=== PATIENT | male | born 1950 | race Caucasian/White ===

== ENCOUNTER 2017-11-25 13:45 | Emergency (ER) | payer MEDICARE ==
[~2017-11-25] VITALS: Ht 167.6 cm; Wt 75.0 kg
[~2017-11-25 13:45] MED LIST: ABAC1TAB2 PO; ASPI-1265 PO; ATOR10TA87 PO; CEPH-572 PO; DARU1TAB PO; DEXL30CA3 PO; DOXY100C43 PO; ELET20TA; FAMC500T3 PO; GABA800T PO; HYDR-4070 PO; HYDR25TA4 PO; LACT1CAP65 PO; LORA1TAB PO; NORCO10T PO; ONDA8TAB9 PO; PER5325T PO; TEST5GEL6 TD; [UNRECOGNIZED DRUG - OTHER] PO; [UNRECOGNIZED DRUG - OTHER] PO
[2017-11-25 13:52] VITALS: BP 171/97
[2017-11-25] MEDS ORDERED: LIDOcaine 1.5% w/epinephrine 1:200,000 5ml ampul IJ ONE (15:00)
[2017-11-25] MEDS ORDERED: AMOX-580 PO (15:58)
[2017-11-25] MEDS ORDERED: CEPH500C5 PO (16:02)
== END 2017-11-25 16:36 | disposition home or self-care (01) ==
LOC: ER 13:46
DX: L02.01 Cutaneous abscess of face (principal); I10 Essential (primary) hypertension; K57.90 Diverticulosis of intestine, part unspecified, without perforation or abscess without bleeding; F12.90 Cannabis use, unspecified, uncomplicated; Z88.8 Allergy status to other drugs, medicaments and biological substances; Z79.82 Long term (current) use of aspirin
CPT/HCPCS: 87070; 87077; 87186; 99284; A6449; J3490; 99283

== ENCOUNTER 2018-07-04 12:52 | Outpatient (CLI) | payer MEDICARE ==
[~2018-07-04 12:52] MED LIST changes: -CEPH-572 PO; +CEPH500C5 PO; -DOXY100C43 PO
== END 2018-07-04 23:59 | disposition home or self-care (01) ==
LOC: CARD DIAG 12:52
PROVIDERS: ATTEND Internal Medicine Cardiovascular Disease
DX: I08.0 Rheumatic disorders of both mitral and aortic valves (principal); R94.31 Abnormal electrocardiogram [ECG] [EKG]; F17.200 Nicotine dependence, unspecified, uncomplicated; K21.9 Gastro-esophageal reflux disease without esophagitis; Z79.82 Long term (current) use of aspirin
CPT/HCPCS: 93306

== ENCOUNTER 2021-04-12 14:13 | Emergency (ER) | payer MEDICARE ==
[~2021-04-12] VITALS: Ht 170.2 cm; Wt 79.0 kg
[~2021-04-12 14:13] MED LIST changes: -CEPH500C5 PO
[2021-04-12 14:50] VITALS: BP 117/74
[2021-04-12 20:21] LABS: BASOPHILS % (AUTO) 0.4 % (0-1); EOSINOPHILS # (AUTO) 0.1 X10'3 (0-0.9); EOSINOPHILS % (AUTO) 1.5 % (0-6); HEMOGLOBIN 16.7 g/dl (14.0-17.9); LYMPHOCYTES # (AUTO) 1.3 X10'3 (1.1-4.8); LYMPHOCYTES % (AUTO) 24.2 % (21-51); MEAN CORPUSCULAR HEMOGLOBIN 35.4 PG (27.0-31.0); MEAN CORPUSCULAR HGB CONC 34.2 g/dL (33.0-36.5); MEAN CORPUSCULAR VOLUME 103.5 FL (78-98); MEAN PLATELET VOLUME 6.7 FL (7.4-10.4); MONOCYTES # (AUTO) 0.6 X10'3 (0-0.9); MONOCYTES % (AUTO) 10.8 % (2-12); NEUTROPHILS # (AUTO) 3.5 X10'3 (1.8-7.7); NEUTROPHILS % (AUTO) 63.1 % (42-75); PLATELET COUNT 143 X10'3 (140-440); RED BLOOD COUNT 4.73 X10'6 (4.70-6.10); RED CELL DISTRIBUTION WIDTH 14.1 % (11.5-14.5); WHITE BLOOD COUNT 5.6 X10'3 (4.5-11.0)
[2021-04-12 20:33] LABS: APTT 27 SECONDS (22-32)
[2021-04-12 20:35] LABS: ALANINE AMINOTRANSFERASE 40 U/L (12-78); ALBUMIN 3.5 G/DL (3.4-5.0); ALKALINE PHOSPHATASE 103 IU/L (46-116); ANION GAP 5 (8-16); ASPARTATE AMINO TRANSFERASE 34 U/L (10-37); BILIRUBIN,TOTAL 0.9 MG/DL (0.1-1.0); BLOOD UREA NITROGEN 22 MG/DL (7-18); BUN/CREATININE RATIO 19.3 (5.4-32.0); CHLORIDE 104 MMOL/L (99-107); CREATININE 1.14 MG/DL (0.60-1.10); GLUCOSE 100 MG/DL (70-104); SODIUM 139 MMOL/L (135-145); TOTAL PROTEIN 7.1 G/DL (6.4-8.2); eGFR 64 ML/MIN
[2021-04-12 20:43] LABS: MAGNESIUM 2.1 MG/DL (1.5-2.4)
[2021-04-12] MEDS ORDERED: ibuprofen tablet 400 MG TABLET PO ONE (21:40)
[2021-04-12] MEDS ORDERED: CEPH-585 PO (22:23)
== END 2021-04-12 22:34 | disposition home or self-care (01) ==
LOC: ER 14:14
DX: S01.81XA Laceration without foreign body of other part of head, initial encounter (principal); R42 Dizziness and giddiness; R53.1 Weakness; I10 Essential (primary) hypertension; F12.90 Cannabis use, unspecified, uncomplicated; Z98.890 Other specified postprocedural states; Z88.5 Allergy status to narcotic agent; Z79.82 Long term (current) use of aspirin; Z79.899 Other long term (current) drug therapy; W19.XXXA Unspecified fall, initial encounter; Y93.89 Activity, other specified; Y92.89 Other specified places as the place of occurrence of the external cause; Y99.8 Other external cause status
CPT/HCPCS: 12013; 36415; 70450; 71045; 72125; 80053; 83735; 83880; 84484; 85025; 85610; 85730; 93005; 99285

== ENCOUNTER 2022-04-11 08:55 | Emergency (ER) | payer MEDICARE ==
[~2022-04-11] VITALS: Ht 172.7 cm; Wt 67.0 kg
[~2022-04-11 08:55] MED LIST changes: -ABAC1TAB2 PO; +BICT1TAB PO; +CARV-50 PO; +CEPH-585 PO; -DARU1TAB PO; -ELET20TA; -GABA800T PO; +GLUT5POW TD; -HYDR-4070 PO; +MELA10TA2 PO; -NORCO10T PO; -ONDA8TAB9 PO; -TEST5GEL6 TD; +TEST75GE5 TP; +TRYP500T; -[UNRECOGNIZED DRUG - OTHER] PO; +fish oil; +glucosamine
[2022-04-11 09:23] LABS: BASOPHILS % (AUTO) 0.5 % (0-1); EOSINOPHILS # (AUTO) 0.4 X10'3 (0-0.9); EOSINOPHILS % (AUTO) 8.8 % (0-6); HEMATOCRIT 36.4 % (42.0-52.0); HEMOGLOBIN 12.2 g/dl (14.0-17.9); LYMPHOCYTES % (AUTO) 18.9 % (21-51); MEAN CORPUSCULAR HEMOGLOBIN 33.1 PG (27.0-31.0); MEAN CORPUSCULAR HGB CONC 33.4 g/dL (33.0-36.5); MEAN CORPUSCULAR VOLUME 99.1 FL (78-98); MEAN PLATELET VOLUME 5.9 FL (7.4-10.4); MONOCYTES # (AUTO) 0.5 X10'3 (0-0.9); MONOCYTES % (AUTO) 9.6 % (2-12); NEUTROPHILS # (AUTO) 3.1 X10'3 (1.8-7.7); NEUTROPHILS % (AUTO) 62.2 % (42-75); PLATELET COUNT 260 X10'3 (140-440); RED BLOOD COUNT 3.68 X10'6 (4.70-6.10); RED CELL DISTRIBUTION WIDTH 15.6 % (11.5-14.5); WHITE BLOOD COUNT 5.1 X10'3 (4.5-11.0)
[2022-04-11 09:27] LABS: ALANINE AMINOTRANSFERASE 26 U/L (12-78); ALBUMIN 3.1 G/DL (3.4-5.0); ALBUMIN/GLOBULIN RATIO 0.7 (1.1-1.5); ALKALINE PHOSPHATASE 135 IU/L (46-116); ANION GAP 3 (8-16); ASPARTATE AMINO TRANSFERASE 34 U/L (10-37); BILIRUBIN,TOTAL 0.9 MG/DL (0.1-1.0); BLOOD UREA NITROGEN 19 MG/DL (7-18); BUN/CREATININE RATIO 15.3 (5.4-32.0); CALCIUM 8.8 MG/DL (8.5-10.1); CHLORIDE 96 MMOL/L (99-107); CREATININE 1.24 MG/DL (0.60-1.10); GLUCOSE 124 MG/DL (70-104); POTASSIUM 3.9 MMOL/L (3.5-5.1); SODIUM 134 MMOL/L (135-145); TOTAL CARBON DIOXIDE 35.1 MMOL/L (24-32); TOTAL PROTEIN 7.6 G/DL (6.4-8.2); eGFR 57 ML/MIN
[2022-04-11 09:34] LABS: MAGNESIUM 2.1 MG/DL (1.5-2.4)
[2022-04-11 11:16] VITALS: BP 145/80
== END 2022-04-11 11:23 | disposition home or self-care (01) ==
LOC: ER 08:55
DX: R55 Syncope and collapse (principal); I10 Essential (primary) hypertension; F12.90 Cannabis use, unspecified, uncomplicated; Z95.1 Presence of aortocoronary bypass graft
CPT/HCPCS: 36415; 71045; 80053; 83735; 83880; 84484; 85025; 93005; 93970; 99285

== ENCOUNTER 2022-04-17 17:36 | Emergency (ER) | payer MEDICARE ==
[~2022-04-17] VITALS: Ht 172.7 cm; Wt 72.7 kg
[2022-04-17 18:05] LABS: BASOPHILS % (AUTO) 0.5 % (0-1); EOSINOPHILS # (AUTO) 0.3 X10'3 (0-0.9); EOSINOPHILS % (AUTO) 5.1 % (0-6); HEMATOCRIT 38.2 % (42.0-52.0); HEMOGLOBIN 12.7 g/dl (14.0-17.9); LYMPHOCYTES # (AUTO) 1.1 X10'3 (1.1-4.8); LYMPHOCYTES % (AUTO) 16.9 % (21-51); MEAN CORPUSCULAR HEMOGLOBIN 32.8 PG (27.0-31.0); MEAN CORPUSCULAR HGB CONC 33.2 g/dL (33.0-36.5); MEAN CORPUSCULAR VOLUME 98.9 FL (78-98); MEAN PLATELET VOLUME 5.7 FL (7.4-10.4); MONOCYTES # (AUTO) 0.5 X10'3 (0-0.9); MONOCYTES % (AUTO) 8.2 % (2-12); NEUTROPHILS # (AUTO) 4.3 X10'3 (1.8-7.7); NEUTROPHILS % (AUTO) 69.3 % (42-75); PLATELET COUNT 258 X10'3 (140-440); RED BLOOD COUNT 3.87 X10'6 (4.70-6.10); RED CELL DISTRIBUTION WIDTH 16.1 % (11.5-14.5); WHITE BLOOD COUNT 6.3 X10'3 (4.5-11.0)
[2022-04-17 18:31] LABS: ALANINE AMINOTRANSFERASE 31 U/L (12-78); ALBUMIN 3.4 G/DL (3.4-5.0); ALBUMIN/GLOBULIN RATIO 0.7 (1.1-1.5); ALKALINE PHOSPHATASE 140 IU/L (46-116); ANION GAP 6 (8-16); ASPARTATE AMINO TRANSFERASE 32 U/L (10-37); BLOOD UREA NITROGEN 24 MG/DL (7-18); BUN/CREATININE RATIO 20.5 (5.4-32.0); CALCIUM 9.5 MG/DL (8.5-10.1); CHLORIDE 99 MMOL/L (99-107); CREATININE 1.17 MG/DL (0.60-1.10); GLUCOSE 110 MG/DL (70-104); POTASSIUM 3.6 MMOL/L (3.5-5.1); SODIUM 138 MMOL/L (135-145); TOTAL CARBON DIOXIDE 32.6 MMOL/L (24-32); TOTAL PROTEIN 8.3 G/DL (6.4-8.2); eGFR 61 ML/MIN
[2022-04-17 18:37] LABS: MAGNESIUM 2.5 MG/DL (1.5-2.4)
[2022-04-17 20:00] VITALS: BP 114/89
== END 2022-04-17 20:56 | disposition home or self-care (01) ==
LOC: ER 17:36
DX: R55 Syncope and collapse (principal); I10 Essential (primary) hypertension; F12.90 Cannabis use, unspecified, uncomplicated
CPT/HCPCS: 36415; 71045; 80053; 83735; 83880; 84484; 85025; 93005; 99285

== ENCOUNTER 2022-08-02 15:38 | Emergency (ER) | payer MEDICARE ==
[~2022-08-02] VITALS: Ht 170.2 cm; Wt 163.0 kg
[~2022-08-02 15:38] MED LIST changes: +APIX5TAB3 PO; +ISON300T21 PO; +LISI10TA27 PO; +PYRI-3 PO; +SLEEP PO; +TRYP500C PO; -TRYP500T; -fish oil; +fish oil PO; -glucosamine; +glucosamine PO
[2022-08-02 15:53] VITALS: BP 131/97
[2022-08-02] MEDS ORDERED: APIX5TAB3 PO ×2 (17:56→18:00)
== END 2022-08-02 18:15 | disposition home or self-care (01) ==
LOC: ER 15:39
DX: I11.9 Hypertensive heart disease without heart failure (principal); Z76.0 Encounter for issue of repeat prescription; F12.10 Cannabis abuse, uncomplicated; Z79.899 Other long term (current) drug therapy; Z79.82 Long term (current) use of aspirin
CPT/HCPCS: 99281